=== PATIENT | female | born 1965 | race Caucasian/White ===

== ENCOUNTER → 2016-11-05 07:37 | Outpatient (CLI) | payer MEDICAID ==
[~2016-11-05 07:37] MED LIST: IBUPROFEN600 MG PO; PERCOCET 5-3251 TAB PO; PROVENTIL HFA6.7 GM INH
[2016-11-27 09:20] VITALS: BMI 32.1
== END | disposition home or self-care (01) ==
LOC: D.RT 07:37
DX: J44.9 Chronic obstructive pulmonary disease, unspecified (principal)

== ENCOUNTER 2016-11-26 06:54 | Inpatient (IN) | payer MEDICAID ==
[2016-11-23 11:55] LABS: BASOPHILS 0.6 % (0.0-2.0); EOSINOPHILS 2.7 % (0-7); HEMOGLOBIN 14.8 g/dL (12-16); IMMATURE GRANULOCYTES 0.2 % (0-5); LYMPHOCYTES 25.7 % (15-50); MCH 30.6 pg (26.0-34.0); MCHC 33.6 g/dL (31.0-37.0); MCV 90.9 fL (80.0-100.0); MEAN PLATELET VOLUME 9.5 fL (7.4-10.4); MONOCYTES 4.2 % (2-11); NEUTROPHILS 66.6 % (40-80); PLATELET COUNT 273 10x3/uL (130-400); RBC 4.84 10x6/uL (4.00-5.40); RDW 12.8 % (11.5-14.5); WBC 8.7 10x3/uL (4.8-10.8)
[2016-11-23 12:21] LABS: CALC OSMOLALITY 283 mosm/kg (275-300); CALCIUM 8.6 mg/dL (8.5-10.1); CARBON DIOXIDE 30.3 mmol/L (21.0-32.0); CHLORIDE - SERUM 105 mmol/L (98-107); CREATININE - SERUM 0.8 mg/dL (0.6-1.3); GLUCOSE 116 mg/dL (74-106); POTASSIUM - SERUM 4.6 mmol/L (3.5-5.1); SODIUM 142 mmol/L (136-145); UREA NITROGEN 13 mg/dL (7-18); eGFR NON AFRICAN AMERICAN 80 mL/min (90-120)
[2016-11-26] VITALS (13 sets, daily range): BP systolic 99–129; BP diastolic 56–79; BMI 32.2
[~2016-11-26] VITALS: Ht 167.6 cm; Wt 90.3 kg
[2016-11-26 06:33] LABS: HCG URINE NEGATIVE (NEGATIVE)
[~2016-11-26 06:54] MED LIST changes: -IBUPROFEN600 MG PO; -PERCOCET 5-3251 TAB PO
--- NOTE | 2016-11-26 10:36 | NUR ---
CARE TRANSFERED TO LUCIO ORTIZ.
--- NOTE | 2016-11-26 10:57 | NUR ---
GILBERT DURBINRAAPOLONIA ADMIN PER DR ROSS ORDER UNABLE TO DOCUMENT ON EMAR
--- NOTE | 2016-11-26 11:30 | NUR ---
PT WAS RECEIVED FROM RECOVERY ROOM VIA STRETCHER. SHE WAS TRANSFERRED TO HER BED. PT IS AWAKE AND ALERT. VSS. GEN- AWAKE AND ALERT, LUNGS- WHEEZING BILATERALLY. HEART- RRR. ABD- SOFT WITH TENDERNESS. BIKINI LINE INCISION WITH BULKY DRESSING INTACT. CLEAN AND DRY. LOWER EXTREMITIES WITH SCD'S NOTED. SCD'S INITIATED. INSTRUCTED PT ON ARTERIAL EMBALMER PUMP, PELAEZ WITH METHYLENE BLUE, SCD'S, IV , ARTERIAL EMBALMER, INCENTIVE ESTELLA AND TURNING, COUGHING AND DEEP BREATHING. HER IV IS PATENT R HAND. PELAEZ INTACT WITH 100 CC GREEN URINE. BED IS LOW, SIDE RAILS ARE UP[ AND CALL LIGHT IS IN REACH.
--- NOTE | 2016-11-26 12:24 | NUR ---
HER BOYFRIEND NORMA CARDONA IS AT BEDSIDE. PT OFFERS NO COMPLAINTS. STATES HER PAIN IS IN CONTROL ABOUT A 3. SHE HAD A DOUBLE TAP BLOCK PER RECOVERY ROOM. PT TOLERATED CLEAR LIQUID DIET.
--- NOTE | 2016-11-26 12:41 | NUR ---
PT IS SITTING UP IN BED FINISHING HER CLEAR LIQUID DIET. TOLERATED WELL. HER BOYFRIEND IS AT BEDSIDE. BED IS LOW, SIDE RAILS UP X 2 AND CALL LIGHT IN REACH.
--- NOTE | 2016-11-26 13:03 | NUR ---
DR GOLDSTEIN TO NURSING STATION. SHE WAS INQUIRING ABOUT MRS. CABALLERO'S OUTPUT. I TOLD HER IT WAS ABOUT 100CC. SHE STATED TO GIVE HER A BOLUS OF FLUIDS. SHE ASKED WHAT IV FLUIDS SHE WAS RECEIVING AND I TOLD HER LR AND SHE STATED TO GIVE HER A 500CC BOLUS OF LR. FLUIDS INCREADED AT THIS TIME.
--- NOTE | 2016-11-26 13:18 | NUR ---
PT IS RESTING IN BED. DRESSING CLEAN AND DRY. NO VAGINAL BLEEDING NOTED. PELAEZ INTACT. IV R HAND PATENT. BOLUS OF LR INFUSING. SCD'S INTACT BILATERALLY. BED IS LOW. SIDE RAILS UP X 2 AND CALL LIGHT IN REACH.
[2016-11-26 14:32] LABS: BASOPHILS 0.1 % (0.0-2.0); EOSINOPHILS 0.1 % (0-7); HEMATOCRIT 43.8 % (36.0-48.0); HEMOGLOBIN 14.8 g/dL (12-16); IMMATURE GRANULOCYTES 0.3 % (0-5); LYMPHOCYTES 4.7 % (15-50); MCH 31.2 pg (26.0-34.0); MCHC 33.8 g/dL (31.0-37.0); MCV 92.2 fL (80.0-100.0); MEAN PLATELET VOLUME 9.8 fL (7.4-10.4); MONOCYTES 1.5 % (2-11); NEUTROPHILS 93.3 % (40-80); PLATELET COUNT 268 10x3/uL (130-400); RBC 4.75 10x6/uL (4.00-5.40); WBC 17.2 10x3/uL (4.8-10.8)
[2016-11-26 14:50] LABS: ANION GAP 14.8 mmol/L (8-16); CALCIUM 8.5 mg/dL (8.5-10.1); CARBON DIOXIDE 26.2 mmol/L (21.0-32.0); CREATININE - SERUM 0.9 mg/dL (0.6-1.3)
--- NOTE | 2016-11-26 14:52 | NUR ---
PT IS LYING IN BED SLEEPING. BED IS LOW, SIDE RAILS UPX 2 AND CALL LIGHT IN REACH.
--- NOTE | 2016-11-26 16:10 | NUR ---
DR MICHAEL IS HERE TO SEE PT. NEW ORDERS NOTED.
--- NOTE | 2016-11-26 16:30 | NUR ---
PT STATES HER PAIN IS ABOUT A 2-3. SHE STATES REGI SHE WOULD LIKE HER NICODERM PATCH. NICODERM 21 MG PLACED POSTERIOR LEFT ARM. PT STILL HAS NO VAGINAL BLEEDING. DRESSING INTACT. CLEAN AND DRY. IV PATENT R HAND. PELAEZ INTACT 250 CC LIGHT GREEN URINE.
--- NOTE | 2016-11-26 17:21 | NUR ---
RESPIRATORY IS HERE TO GIVE PT AN UPDRAFT.
--- NOTE | 2016-11-26 17:33 | NUR ---
URINE CULTURE AND RESPIRATORY CULTURES OBTAINED AND SENT TO THE LAB.
--- NOTE | 2016-11-26 18:17 | NUR ---
PT IS EATING DINNER. PELAEZ INTACT WITH 250 CC MORE OF LIGHT GREEN URINE. IV PATENT R HAND WITH LR INFUSING AT 125 CC/HR. DEMEROL TIRE WRAPPER 10 MG Q 10 MIN. BED IS LOW, SIDE RAILS UP X 2 AND CALL LIGHT IS IN REACH.
[2016-11-26 18:35] LABS: APPEARANCE CLEAR (CLEAR); BILIRUBIN NEGATIVE (NEGATIVE); COLOR GREEN (YELLOW); GLUCOSE NEGATIVE (NEGATIVE); KETONE NEGATIVE (NEGATIVE); LEUKOCYTE ESTERASE NEGATIVE (NEGATIVE); NITRITE NEGATIVE (NEGATIVE); PROTEIN NEGATIVE (NEGATIVE); UROBILINOGEN NORMAL (NORMAL)
[2016-11-26 18:36] LABS: BACTERIA FEW /hpf (NONE SEEN); RED CELLS - URINE 0-5 /hpf (0-5); WHITE CELLS - URINE OCC /hpf (0-5)
--- NOTE | 2016-11-26 19:15 | NUR ---
ASSESSMENT PER FLOW SHEET, VS OBTAINED, IF IN RIGHT HAND INTACT WITH NO REDNESS OR EDEMA INFUSING VIA PUMP LR AT 125 ML/HR, DEMEROL TICKET AGENT TO DELIVER 10MG/10MINS PER PT'S DEMAND FOR PAIN CONTROL, PT RATES INC PAIN 12/07, STATES "IT'S NOT THAT BAD", PT INST ON AND VERBALIZES UNDERSTANDING OF TICKET AGENT, Drink Up [employer] WITH LARGE DRESSING CDI WITH NO DRAINAGE NOTED, FRESH ICE PACK TO ABD, NO VAG BLEEDING NOTED, PELAEZ CATH INTACT, DRAINING BLUISH GREEN URINE, PELAEZ CATH SECURED TO LEG WITH MEPIPORE TAPE, PT INST ON DRINKING PLENTY OF FLUIDS, PT DENIES FLATUS, SCD PUMP NOTED TO BE OFF AT THIS TIME, SCD'S ON AND PUMP TURNED ON, SCD PUMP WORKING PROPERLY, PT INST ON AND DEMONSTRATED INCENTIVE SPIROMETER, OVERHEAD LIGHT OFF, SINK LIGHT ON, PT DENIES FURTHER NEEDS
--- NOTE | 2016-11-26 20:30 | NUR ---
PT RESTING ON LEFT SIDE WITH EYES CLOSED, RESP QUIET, NO DISTRESS NOTED, LEFT UNDISTURBED AT THIS TIME
--- NOTE | 2016-11-26 21:04 | NUR ---
PT RESTING WITH EYES CLOSED, AROUSES TO SOFT VERBAL STIMULATION, ADM 2100 MEDS PO PER MD ORDERS, SEE EMAR, PT DENIES NEEDS AT THIS TIME
--- NOTE | 2016-11-26 22:25 | NUR ---
PT IS RESTING ON BACK WITH EYES CLOSED, RESP QUIET, NO DISTRESS NOTED, LEFT UNDISTURBED AT THIS TIME
--- NOTE | 2016-11-26 23:40 | NUR ---
PT AWAKE, DEMEROL YIELD LOSS INSPECTOR FINISHED INFUSING, YIELD LOSS INSPECTOR TURNED OFF, POC DISCUSSED WITH PT ABOUT SALINE LOCKING IV AND REMOVING PELAEZ CATHETER, PT STATES "OH GOOD, I AM READY FOR THAT TO COME OUT", IV IN RIGHT HAND CONVERTED TO SALINE LOCK, FLUSHED WITH 10 MLS OF NS WITH NO DIFFICULTY, PELAEZ CATH REMOVED, 950 MLS OF LIGHT GREEN URINE EMPTIED FROM CATHETER, SILVERIO CARE DONE WITH WET WARM WASH CLOTHS, SCANT VAG DRIED BLOOD NOTED ON PERINIUM, PT INST ON VAG BLEEDING AND VOIDING WITHIN 4-5 HOURS AND USING CALL LIGHT WHEN NEEDING TO GET UP, PT VERBALIZES UNDERSTANDING, VS OBTAINED, PT RATES INC PAIN 01/07, WILL ADM PAIN MED
--- NOTE | 2016-11-26 23:57 | NUR ---
ADM PERCOCET PO PER MD ORDERS WITH FRESH H20, REQUESTED AND SERVED [place] [employer] AND STRAWBERRY JELLO, PT REPORTS TAKING PERCOCET BEFORE WITH NO SIDE EFFECTS, PT'S CELL PHONE HANDED TO HER, PT DENIES FURTHER NEEDS AT THIS TIME
--- NOTE | 2016-11-27 00:35 | NUR ---
PT UP TO BR WITH ASSISTANCE, GAIT STEADY, UNABLE TO VOID AT THIS TIME, REPORTS PASSING FLATUS, ASSISTED PT WITH SILVERIO PAD, PANTIES AND CLEAN GLOWN, PT BACK TO BED, SCD'S RECONNECTED TO PUMP AND WORKING PROPERLY, FRESH ICE PACK TO ABD, CRACKERS PROVIDED, SINK LIGHT OFF, OVERHEAD LIGHT STRING TIED TO BED, PT DENIES FURTHER NEEDS
--- NOTE | 2016-11-27 02:05 | NUR ---
PT FOOD AND BEVERAGE CASHIER LIGHT, SCD'S DISCONNECTED, PT UP TO BR WITH ASSISTANCE, GAIT STEADY, PT VOIDED MOD AMOUNT, MISSED THE [place] HAT, PT BACK TO BED, SCD'S RECONNECTED AND WORKING PROPERLY, PT DENIES FURTHER NEEDS
[2016-11-27 03:36] VITALS: BP 118/76
--- NOTE | 2016-11-27 03:40 | NUR ---
PT CALLED VIA CL FOR ASSISTANCE OOB TO BATHROOM. PT UP TO VOID WITH STANDBY ASSIST. VOIDED 300 MLS CLEAR LIGHT YELLOW URINE IN HAT. PAIN 2/10, "A LITTLE ACHE IN MY BELLY." VSS. ICE WATER GIVEN, DENIES ADDITIONAL NEEDS. BED IN LOW POSITION WITH UPPER SIDE RAILS RAISED X2, CL/PHONE WITHIN PT REACH. WILL CONT TO MONITOR AND ASSIST PRN.
--- NOTE | 2016-11-27 04:40 | NUR ---
PT RESTING WITH EYES CLOSED, RESP QUIET, NO DISTRESS NOTED, LEFT UNDISTURBED AT THIS TIME
--- NOTE | 2016-11-27 05:54 | NUR ---
LAB TO ROOM FOR AM BLOOD DRAW
--- NOTE | 2016-11-27 06:11 | NUR ---
RADIOLOGY TO ROOM FOR CHEST X-RAY
--- NOTE | 2016-11-27 06:17 | NUR ---
PHARMACY NOTIFIED FOR PROTONIX
--- NOTE | 2016-11-27 06:31 | NUR ---
PT AWAKE, C/O INC PAIN AND CRAMPING, ADM PERCOCET AND MOTRIN PO PER MD ORDERS, SEE EMAR, PT REPORTS VOIDING X 2, EMPTIED 650 MLS OF VERY LIGHT GREEN URINE FROM [place] HAT, PT DENIES FURTHER NEEDS
[2016-11-27 06:45] LABS: BASOPHILS 0.1 % (0.0-2.0); EOSINOPHILS 0 % (0-7); HEMOGLOBIN 13.3 g/dL (12-16); IMMATURE GRANULOCYTES 0.3 % (0-5); LYMPHOCYTES 6.1 % (15-50); MCH 30.5 pg (26.0-34.0); MCHC 33.3 g/dL (31.0-37.0); MCV 91.7 fL (80.0-100.0); MEAN PLATELET VOLUME 9.8 fL (7.4-10.4); MONOCYTES 4.9 % (2-11); NEUTROPHILS 88.6 % (40-80); PLATELET COUNT 308 10x3/uL (130-400); RBC 4.36 10x6/uL (4.00-5.40); RDW 12.8 % (11.5-14.5); WBC 16.3 10x3/uL (4.8-10.8)
--- NOTE | 2016-11-27 07:00 | NUR ---
SHIFT REPORT TO DAVID HEATH RN
[2016-11-27 07:02] LABS: CALC OSMOLALITY 277 mosm/kg (275-300); CALCIUM 8.4 mg/dL (8.5-10.1); CARBON DIOXIDE 28.1 mmol/L (21.0-32.0); CHLORIDE - SERUM 103 mmol/L (98-107); CREATININE - SERUM 0.8 mg/dL (0.6-1.3); MAGNESIUM - SERUM 1.9 mg/dL (1.8-2.4); PHOSPHOROUS 3.5 mg/dL (2.5-4.9); POTASSIUM - SERUM 3.8 mmol/L (3.5-5.1); SODIUM 140 mmol/L (136-145); UREA NITROGEN 8 mg/dL (7-18); eGFR NON AFRICAN AMERICAN 80 mL/min (90-120)
[2016-11-27 07:06] LABS: GLUCOSE 110 mg/dL (74-106)
--- NOTE | 2016-11-27 07:20 | NUR ---
PATIENT SITTING UP IN BED. SHE'S JUST RETURNED FROM THE RESTROOM INDEPENDENTLY. SHE STATES THAT SHE IS PASSING GAS. SHE HAS VOIDED X3. SHE STATES THAT HER PAIN IS MEAR SORENESS IN THE ABDOMEN. SHE REQUESTS SOMETHING FOR ACID REFLUX. HER IV SL IS WITHOUT REDNESS, SORENEES.
[2016-11-27 07:30] VITALS: BP 122/67
--- NOTE | 2016-11-27 08:00 | NUR ---
MARIAJOSE HAS JUST COMPLETED HER UPDRAFT TREATMENT FOR RT. BREAKFAST DELIVERED. SHE IS ANXIOUS TO EAT. BOWEL SOUNDS ARE ACTIVE. SHE DENIES PAIN AT THIS TIME. ABDOMINAL DRESSING IS C/D/I.
[2016-11-27 09:20] VITALS: Ht 167.6 cm; Wt 90.3 kg
--- NOTE | 2016-11-27 09:30 | NUR ---
PATIENT REMAINS AWAKE AND ALERT. SECURED HER IV WITH TAPE, PROVIDED WITH FRESH WATER AND ICE PACK TO INCISION. MEDICATIONS GIVEN, EXPLAINED THE TIME LAPSE REQUIREMENT FOR PERCOCET. SHE IS RATING HER PAIN A 4 AND UNDERSTANDS THAT SHE MUST WAIT FOR ADDITIONAL DOSE. SHE VOICES UNDERSTANDING. SHE JUST WANTED ONE SINCE SHE HAS EATEN AND WANTS TO SHOWER SOON. PLACED HER ESTRODIAL PATCH ON HER RIGHT FLANK AREA. DATED IT AND INSTRUCTED HER TO ROTATE PLACEMENT WITH CHANGES. ALSO INSTRUCTED HER TO REPORT ANY SKIN IRRITATION. NICOTINE PATCH PLACED ON HER RIGHT UPPER ARM WITH INSTRUCTRIONS TO KEEP IT FROM A JOINT AND ROTATE PATCH PLACEMENT. SHE VOICES UNDERSTANDING AND REPORTS SHE WILL NAP UNTIL SHE CAN BE PREMEDICATED AGAINST PAIN FOR SHOWER. CALL LIGHT WITHIN HER REACH.
--- NOTE | 2016-11-27 11:00 | NUR ---
PATIENT GIVEN MEDICATION. SHE STATES THAT SHE GOT UP TO THE RESTROOM AND DECIDED TO WALK TO THE NURSERY, GET SOME COFFEE AND RETURN TO BED. SHE IS CURRENTLY RATING PAIN A 5. DENIED OTHER NEEDS AT THIS TIME. CALL LIGHT IS WITHIN HER REACH.
--- NOTE | 2016-11-27 12:37 | NUR ---
PATIENT SITTING UP IN HER BED, HOB UP 45 DEGREES. SHE STATES THAT HER PAIN IS RATED A 2 ON THE PAIN SCALE. [facility]. PT DENIES PAIN. MONITORING.
--- NOTE | 2016-11-27 13:59 | NUR ---
PATIENT OUT AMBULATING IN THE HALLWAY WITH HER DAUGHTER IN LAW. STATE SHTAT SHE IS GOING TO WALK HER DAUGHTER IN LAW TOWARD THE FRONT DOOR. SHE IS WALKING UPRIGHT WITHOUT GUARDING HERSELF. STATES THAT SHE IS CURRENTLY "FEELING REAL GOOD".
--- NOTE | 2016-11-27 14:25 | NUR ---
PATIENT RETURNED TO UNIT ALONE. I EXPLAINED THAT I WAS CONCERNED FOR HER SAFETY SINCE SHE WAS OFF THE UNIT FOR SO LONG. INSTRUCTED HER TO REMAIN ON THE UNIT WHEN AMBULATING. SHE VOICED UNDERSTANDING.
[2016-11-27 16:20] VITALS: BP 122/75
--- NOTE | 2016-11-27 16:40 | NUR ---
MARIAJOSE IS RESTING IN HER BED WITH LIGHTS OUT AND TV ON LOW. SHE DENIES NEEDS, REQUESTS THE IV SL BE REMOVED FROM HER RIGHT HAND. DID SO WITH THE CATHETER FULLY INTACT. 1+ PITTING NOTED TO THE TOPS OF BOTH FEET. SCD ARE ON AND WORKING.
--- NOTE | 2016-11-27 17:30 | NUR ---
PATIENT UP AMBULATING IN THE HALLWAY. SHE DENIES NEEDS AT THIS TIME.
--- NOTE | 2016-11-27 18:38 | NUR ---
PATIENT UP VISITING WITH MALE VISITOR. DENIES NEEDS A TTHIS TIME.
[2016-11-27 19:25] VITALS: BP 129/75
--- NOTE | 2016-11-27 19:25 | NUR ---
PT RECEIVED SITTING UP IN BED AWAKE AND ALERT WITH FAMILY MEMBER AT BEDSIDE. PT RATES PAIN 5/10. VSS. HEART RRR. LUNG SOUNDS CLEAR BILATERALLY. BOWEL SOUNDS ACTIVE X4 QUADRENTS. LOW TRANSVERSE INCISION NOTED TO ABDOMEN COVERED WITH BULKY DRESSING. CDI. NO BLEEDING NOTED TO PAD UNDER PT. ABDOMEN SOFT WITH TENDERNESS NOTED. SCDS NOTED TO BLE. PT DENIES NEEDS AT THIS TIME. STATES SHE WILL PRESS CALL LIGHT WHEN SHE IS READY TO GET IN THE SHOWER. BED LOW. PHONE AND CALL LIGHT IN REACH. SRX2.
--- NOTE | 2016-11-27 19:25 | NUR ---
CALLED TO PT BS WITH C/O PAIN. RATES 04/08. REQUESTS MEDICATION. 1 TAB PERCOCET 10 AND 1 TAB IBUPROFEN PROVIDED AT THIS TIME. LINENS PROVIDED TO PT TO TAKE A SHOWER WHEN READY. PT DENIES ANY FURTHER NEEDS. BED IN LOW POSITION, SIDE RAILS UP TIMES 2, CALL LIGHT AND PHONE IN REACH. SO AT PT BS FOR SUPPORT AND ASSISTANCE. WILL CONT TO MONITOR PT STATUS.
--- NOTE | 2016-11-27 20:45 | NUR ---
PT UP USING SHOWER AT THIS TIME. REMOVED DRESSING FROM INCISION. SCANT BLOOD NOTED TO DRESSING. INCISION EDGES WELL APPROXIMATED. NO REDNESS, PURULENT DRAINAGE, OR SWELLING NOTED TO INCISIONAL AREA. LINEN CHANGE DONE. PT REQUESTS ICE WATER AT THIS TIME. RATES PAIN 4/10. DENIES OTHER NEEDS. BED LOW. PHONE AND CALL LIGHT IN REACH. SRX2.
--- NOTE | 2016-11-27 21:21 | NUR ---
ADMINISTERED PM MEDS. PT RATES PAIN 01/07. DENIES NEEDS AT THIS TIME. BED LOW. PHONE AND CALL LIGHT IN REACH. SRX2.
--- NOTE | 2016-11-27 22:39 | NUR ---
PT RESTING QUIETLY AT THIS TIME WITH EYES CLOSED. RESPIRATIONS EVEN, NON-LABORED. NO ACUTE DISTRESS NOTED AT THIS TIME. BED LOW. PHONE AND CALL LIGHT IN REACH. SRX2.
[2016-11-28] VITALS: BP 115/67
--- NOTE | 2016-11-28 | NUR ---
PT RESTING QUIETLY AT THIS TIME. AROUSED EASILY. VSS. PT DENIES NEEDS. BED LOW. PHONE AND CALL LIGHT IN REACH. SRX2.
--- NOTE | 2016-11-28 02:00 | NUR ---
PT RESTING QUIETLY AT THIS TIME WITH EYES CLOSED. RESPIRATIONS EVEN, NON-LABORED. NO ACUTE DISTRESS NOTED AT THIS TIME. BED LOW. PHONE AND CALL LIGHT IN REACH. SRX2
--- NOTE | 2016-11-28 02:10 | NUR ---
PT HISTORIOGRAPHY TEACHER LIGHT. REQUESTS MEDICATION FOR PAIN 03/09. ADMINSITERED PERCOCET PO PER ORDERS. PT DENIES OTHER NEEDS. BED LOW. PHONE AND CALL LIGHT IN REACH. SRX2.
[2016-11-28 03:48] VITALS: BP 112/75
--- NOTE | 2016-11-28 03:48 | NUR ---
PT RESTING QUIETLY AT THIS TIME WITH EYES CLOSED. AROUSED EASILY. VSS. PT DENIES NEEDS AT THIS TIME. BED LOW. PHONE AND CALL LIGHT IN REACH. SRX2.
--- NOTE | 2016-11-28 05:28 | NUR ---
PT RESTING QUIETLY IN BED AT THIS TIME. RESPIRATIONS EVEN, NON-LABORED. NO ACUTE DISTRESS NOTED AT THIS TIME. BED LOW. PHONE AND CALL LIGHT IN REACH. SRX2.
--- NOTE | 2016-11-28 05:54 | NUR ---
PT LYING IN BED RESTING QUIETLY AT THIS TIME WITH EYES CLOSED. AROUSED EASILY. ADMINISTERED PROTONIX PO PER ORDERS. PT DENIES NEEDS AT THIS TIME.
[2016-11-28 07:30] VITALS: BP 140/84
--- NOTE | 2016-11-28 07:30 | NUR ---
PT WAS RECEIVED LYING IN BED. SHE STATES HER PAIN IS A 5 AND WOULD LIKE PAIN MED. PERCOCET 10/325 GIVEN PO. VSS. GEN- AWAKE AND ALERT. LUNGS- WITH WHEEZING. HEART- RRR. ABDOMEN SOFT WITH TENDERNESS. BIKINI LINE INCISION WITH DERMABOND. INCISION CLEAN ,DRY AND INTACT. EXT- WITH SCD'S INTACT. FEET WARM AND DRY. BED IS LOW, SIDE RAILS UP X 2 AND CALL LIGHT IN REACH.
[2016-11-28 07:35] LABS: BASOPHILS 0.2 % (0.0-2.0); EOSINOPHILS 0.7 % (0-7); HEMATOCRIT 36.5 % (36.0-48.0); HEMOGLOBIN 12.1 g/dL (12-16); IMMATURE GRANULOCYTES 0.2 % (0-5); LYMPHOCYTES 24.8 % (15-50); MCH 30.5 pg (26.0-34.0); MCHC 33.2 g/dL (31.0-37.0); MCV 91.9 fL (80.0-100.0); MEAN PLATELET VOLUME 9.9 fL (7.4-10.4); MONOCYTES 7.1 % (2-11); PLATELET COUNT 259 10x3/uL (130-400); RBC 3.97 10x6/uL (4.00-5.40); RDW 13.1 % (11.5-14.5)
[2016-11-28 07:36] LABS: WBC 8.5 10x3/uL (4.8-10.8)
[2016-11-28] MEDS ORDERED: PERCOCET 5-3251 TAB PO (08:11)
[2016-11-28] MEDS ORDERED: IBUPROFEN600 MG PO (08:11)
--- NOTE | 2016-11-28 08:16 | NUR ---
RESPIRATORY THERAPY HER TO GIVE PT BREATHING TREATMENT. PT TOLERATED WELL.
--- NOTE | 2016-11-28 08:20 | OP ---
PATIENT NAME: DANIEL CABALLERO MEDICAL RECORD: [id number] :65 LOCATION:[id number] ADMISSION DATE:11/26/16 SURGEON: JEANETTE MOTA MD DATE OF OPERATION: 11/26/2016 PREOPERATIVE DIAGNOSES: 1. Uterine leiomyomas. 2. Postmenopausal bleeding. POSTOPERATIVE DIAGNOSES: 1. Uterine leiomyomas. 2. Postmenopausal bleeding. SURGEON: Jeanette Mota MD ANESTHESIA: General endotracheal anesthesia with Michael Fleming CRNA. PROCEDURES: 1. Total abdominal hysterectomy/bilateral salpingo-oophorectomy. 2. Myomectomy. FINDINGS: Enlarged fibroid uterus with a 7-8 cm fibroid noted of the left broad ligament extending from the region of the uterine fundus almost entirely to the left pelvic sidewall and from the pelvic rim to the cul-de-sac. Once the right ovarian/uterine and left ovarian blood supplies were taken, the broad ligament was opened and myomectomy was performed to restore more normal anatomy to ensure safety during the procedure. The myoma was passed off the field as specimen in addition to the uterus/cervix/adnexa. Methylene blue was given intraoperatively with no extravasation of blue dye noted within the abdominal cavity at any time and clear blue-green urine output noted at completion of the procedure. PROCEDURE IN DETAIL: After informed consent was given, the patient was taken to the operating room where general endotracheal anesthesia was placed and found to be adequate. She was placed in a dorsal frogleg position. A Garrison catheter was placed sterilely. A vaginal prep was performed. The patient was then placed into a supine position and an abdominal prep was performed. She was draped sterilely. A Pfannenstiel skin incision was then made with the scalpel and carried down to the underlying layer of fascia. The fascia was incised in the midline and the fascial incision extended bilaterally with the Hammonds scissors. The superior portion of the fascial incision was grasped with 2 Malaika clamps and the rectus muscles dissected off sharply and bluntly. Attention was then turned to the inferior portion of the fascial incision, which was again grasped with 2 Malaika clamps and the rectus muscles dissected off sharply and bluntly. Rectus muscles were in the midline, the peritoneum identified and grasped with 2 hemostats. The Metzenbaum scissors were then used to enter the peritoneal cavity sharply. The peritoneal incision was then extended superiorly and inferiorly with good visualization of the bladder. The abdomen was then palpated with findings as listed above. The O'Tulio-O'Lazaro retractor was then gently placed into the abdominal cavity and opened. The bowel was then packed with 4 moist lap sponges. A blue moistened towel was placed over the anterior abdominal wall skin and down into the posterior cul-de-sac to shield from the abdominal bowel blade, which was then added onto the O'Tulio-O'Lazaro retractor and bladder blade was placed. The uterus was then grasped in the cornual regions bilaterally with 2 Trupti clamps and elevated. The uterus and adnexa were again palpated and evaluated. The right round OPERATIVE REPORT [id number] ADADANIEL ADAM ligament was grasped with Malaika clamp, transected with the Bovie cautery and suture ligated with 0 Vicryl stick tie. This was held on hemostat. The anterior leaf of the broad ligament was then opened and a bladder flap was begun starting laterally and heading medially. The infundibulopelvic ligament was isolated, clamped with 3 Angelica clamps, transected between the first 2 and suture ligated first with a free tie on a passer and then with 0 Vicryl stick tie. Excellent hemostasis was noted. The uterine vessels on the right were then skeletonized, clamped with Angelica clamps, transected with Hammonds scissors, and suture ligated with 0 Vicryl stick ties. Excellent hemostasis was noted. Attention was then turned to the opposite side. The left round ligament was then clamped with Malaika clamp, transected with the Bovie cautery and suture ligated with 0 Vicryl stick tie. The anterior leaf of the broad ligament on this side was opened in a similar fashion and met on the opposite side effectively dissecting the back of the bladder. The infundibulopelvic ligament was then able to be isolated. It was clamped with 3 curved Angelica clamps, transected between the first 2 and suture ligated with a free tie on a passer and 0 Vicryl stick tie. Excellent hemostasis was again noted. The uterine vessels could not be discerned at this point due to this large fibroid tumor. We were then able to more readily isolate the fibroid. The fibroid was injected in multiple locations with diluted Pitressin solution to aid in hemostasis. As the scleral region was noted anteriorly where the bladder had been dissected away, the Bovie cautery was used to create an incision in this anterior region of the fibroid. We then clamped the fibroid with a tenaculum and held the fibroid on tension as we used the Hammonds scissors, sterile spoon and digital manipulation to shell out the large myoma. Once this was accomplished as safely as could be, the myoma was excised and passed off the field as specimen. We then reapproximated the lower uterine segment of the uterus to the upper fundal region to restore more normal appearing anatomy. The ureter was then able to be identified on this left side and it was palpably normal and noted to be peristalsing normally. The uterine vessels on the left side then were isolated, skeletonized, clamped with 2 curved Angelica clamps, transected and suture ligated with 0 Vicryl stick ties. We then continued clamping, transecting and suture ligating the parametrial and paracervical tissues utilizing a straight Angelica clamp on either side, transecting with the knife and suture ligating with 0 Vicryl until reaching the distal cervix. The proximal vagina was then clamped with 2 curved Angelica clamps and Trevon scissors were used to excise the uterus and cervix and this was passed off the field as specimen. The vaginal cuff was then closed in an interrupted [id number] fashion with 1-0 Vicryl suture. Excellent hemostasis was noted. The ureters were identified once again on either side and noted to be peristalsing normally. The abdomen was irrigated profusely and noted to be hemostatic. Romel dust was placed over the cuff region to aid additionally in hemostasis. The sutures were trimmed. The O'Tulio-O'Lazaro retractor was removed, as well as the bowel and bladder blades. The bowel packing was removed and a count was performed and reported to be correct. The rectus muscles were reapproximated in the midline with 4 interrupted chromic sutures. The fascia was closed with 1-0 Vicryl in a running fashion, locking the first suture. The subcutaneous tissue was irrigated, any bleeders cauterized with Bovie when noted to be sufficiently dry, was closed with 3-0 Vicryl in a running fashion and the skin was closed with 3-0 Monocryl in a subcuticular fashion. Dermabond and pressure dressing were applied. Clear blue-green urine was noted at completion of the procedure. The patient tolerated procedure well. Sponge, lap, needle and instrument counts were reported correct times 2. ESTIMATED BLOOD LOSS: 150 cc. OPERATIVE REPORT [id number] DANIEL CABALLERO URINE OUTPUT: 200 cc. IV FLUIDS: 1800 cc. COMPLICATIONS: None. SPECIMENS: 1. Uterine myoma. 2. Uterus, cervix, bilateral fallopian tubes and ovaries. The patient went to the recovery room in stable condition, the infant to the nursery. TRANSINT:[id number] Voice Confirmation ID: [id number] DOCUMENT ID: [id number] JEANETTE MOTA MD at 0820 CC: [id number] DICTATION DATE: 11/26/16 1226 STOCKFEED MILLER: 11/26/16 1615 ADM IN [place] [id number] [place] [id number]
--- NOTE | 2016-11-28 08:30 | NUR ---
DR GOLDSTEIN IS HERE TO SEE PT THIS AM. SHE WILL DISCHARGE PT HOME TODAY. NEW ORDERS REVIEWED.
--- NOTE | 2016-11-28 09:31 | NUR ---
DR MICHAEL, SPECIAL NEEDS LIBRARIAN HERE TO SEE PT. STATES THAT SHE MAY BE DISCHARGED HOME TODAY. VERBAL ORDERS FOR DISCHARGE. DUONEB QID. MUCINEX DM BID. FLONASE 2 SPRAYS EACH NOSTRIL DAILY. OMEPRAZOLE 20 MG DAILY. OMNICEF 300 MG BID X 7 DAYS. USE INCENTIVE SPIROMETRY OFTEN AT HOME. FOLLOW UP WITH DR CARBAJAL IN 2 WEEKS AT HIS OFFICE.
--- NOTE | 2016-11-28 10:12 | NUR ---
Environment Home with Family 0 * ADLs Independent 0 * Equipment None 0 * List name and contact numbers for known caregivers / representatives who currently or will assist patient after discharge: BOYFRIEND: NORMA CARDONA [phone] * Community resources currently utilized None 0 * Additional services required to return to the preadmission environment? Yes 0 * Can the patient safely return to the preadmission environment? Yes 0 * Has this patient been hospitalized within the prior 30 days at any hospital? No 0 PATIENT STATES SHE LIVES AT HOME WITH HER BOYFRIEND, NORMA CARDONA. HE WILL BE AVAILABLE TO DRIVE HER HOME AT DISCHARGE. SHE WAS INDEPENDENT PRIOR TO COMING TO THE HOSPITAL. HER PCP IS DR. MALIK. SHE GETS HER MEDS FROM [facility] AT THE [facility]. SHE DENIES EVER HAVING HOME HEALTH. PATIENT DENIES USE OF ANY DME. THERE ARE 1-2 STEPS TO ENTER HER HOME. PATIENT NEEDS A NEBULIZER. I HAVE ARRANGED NEBULIZER FROM [facility]. I SPOKE WITH [employer] AND FAXED THE REQUESTED [employer]. THE PATIENT WILL CALL THEM WHEN SHE GETS HOME TO HAVE THEM DELIVER THE NEBULIZER. THE DISCHARGE NURSE WILL CALL THE ANGELA TO [facility] AT THE [facility] ALONG WITH HER OTHER MEDS. PATIENT STATES NORMA WILL STOKER INSTALLER HER MEDS AFTER HE TAKES HER HOME.
--- NOTE | 2016-11-28 10:30 | NUR ---
PTS DISCHARGE INSTRUCTIONS DISCUSSED WITH PT. GAVE HER HANDOUT OF INSTRUCTIONS, PRESCRIPTIONS AND FU APPT CARD. HER DUONED,MUCINEX, OMEPRAZOLE AND [facility]. PT UNDERSTNADS INSTRUCTIONS. PT WAS TAKEN TO THE FRONT ENTRANCE BY WHEELCHAIR.
== END 2016-11-28 11:00 | disposition home or self-care (01) | DRG 742 ==
LOC: D.SDCHOLD 06:54 → D.WS 10:46
PROVIDERS: Internal Medicine Pulmonary Disease; ADMIT Specialist
PROC: 0UT20ZZ Resection of Bilateral Ovaries, Open Approach (ICD-10-PCS; 2016-11-26)
PROC: 0UT70ZZ Resection of Bilateral Fallopian Tubes, Open Approach (ICD-10-PCS; 2016-11-26)
PROC: 0UB90ZZ Excision of Uterus, Open Approach (ICD-10-PCS; 2016-11-26)
PROC: 0UT90ZZ Resection of Uterus, Open Approach (ICD-10-PCS; principal; 2016-11-26 07:30)
PROC: 0UTC0ZZ Resection of Cervix, Open Approach (ICD-10-PCS; 2016-11-26 07:30)
DX: D25.9 Leiomyoma of uterus, unspecified (principal); J44.1 Chronic obstructive pulmonary disease with (acute) exacerbation; F17.203 Nicotine dependence unspecified, with withdrawal; J98.11 Atelectasis; J90 Pleural effusion, not elsewhere classified; N95.0 Postmenopausal bleeding; K21.9 Gastro-esophageal reflux disease without esophagitis; J30.9 Allergic rhinitis, unspecified

== ENCOUNTER 2019-03-24 09:21 | Day surgery (SDC) | payer MEDICAID ==
[~2019-03-24 09:21] MED LIST changes: +IBUPROFEN600 MG PO; +PERCOCET 5-3251 TAB PO
[2019-03-24 09:38] LABS: HEMATOCRIT 45.7 % (36.0-48.0); HEMOGLOBIN 15.9 g/dL (12-16); MCH 31.5 pg (26.0-34.0); MCHC 34.8 g/dL (31.0-37.0); MCV 90.7 fL (80.0-100.0); MEAN PLATELET VOLUME 8.7 fL (7.4-10.4); RBC 5.04 10x6/uL (4.00-5.40); RDW 12.1 % (11.5-14.5); WBC 8.6 10x3/uL (4.8-10.8)
[2019-03-24] MEDS ORDERED: CYMBALTA30 MG PO (11:40)
[2019-03-24] MEDS ORDERED: HYDROCODON-ACE1 EAC7 PO (11:40)
[2019-03-24] MEDS ORDERED: CATAPRES0.2 MG PO (11:41)
[2019-03-24] MEDS ORDERED: EFFEXOR XR37.5 MG PO (11:41)
[2019-03-24] MEDS ORDERED: ALBUTEROL2.5 MG/3 M INH (11:41)
[2019-03-24 11:42] VITALS: BMI 32.3
--- NOTE | 2019-03-24 15:45 | NUR ---
1542 DR. AUDI SKELTON XRAY NOTIFIED OF ROOM NUMBER.
--- NOTE | 2019-03-24 16:00 | NUR ---
1558 XRAY DONE 1600 NAUSEA WITH EMESIS OF PHLEGM PASSING FLATUS NOTED WITH EMESIS
--- NOTE | 2019-03-24 16:40 | NUR ---
1640 WATER SERVED XRAY NO FREE AIR
--- NOTE | 2019-03-27 17:12 | OP ---
PATIENT NAME: DANIEL CABALLERO MEDICAL RECORD: [id number] :65 LOCATION:D.OPS ADMISSION DATE: SURGEON: RONALDO HUNTLEY MD DATE OF OPERATION: 03/24/2019 PREOPERATIVE DIAGNOSES: 1. History of medication tolerance. 2. History of multiple colon polyps, all of which could not be retrieved during the initial endoscopy due to medication intolerance. POSTOPERATIVE DIAGNOSES: 1. History of medication tolerance. 2. History of multiple colon polyps, all of which could not be retrieved during the initial endoscopy due to medication intolerance, with a total of 51 polyps. PROCEDURES: 1. Total colonoscopy to cecum. 2. Snare polypectomies times 5. 3. Hot biopsy forceps polypectomies times 4. 4. Submucosal epinephrine injection times 2. 5. Placement of metallic clips for hemostasis times 2. 6. Endoscopic ablation of 42 smaller polyps utilizing the argon plasma test borer helper. SURGEON: Ronaldo Huntley MD LAST TRIMMER: None. BLOOD LOSS: Minimal. ANESTHESIA: IV sedation. COMPLICATIONS: None. The risks, possible complications, and alternatives to the procedures were explained to the patient. She elects to proceed. Indeed, the patient was tolerant of medication. The endoscopic course was fairly lengthy due to the number of polyps that were identified. DESCRIPTION OF PROCEDURE: The patient was conveyed to the endoscopy suite electively on 03/24/2019. IV sedation was induced by the anesthesia staff. The patient was placed in the Pfeiffer position. A digital rectal examination was performed. A colonoscope was inserted through the anus. It was easily advanced to the cecum. The prep was poor and not acceptable. I slowly withdrew the endoscope. The pullback was greater than one hour pullback. I dragged the folds. I utilized normal imaging as well as narrow band imaging. The polyps ranged in size from 5 mm to 2.5 cm. One of the polyp had a very long stalk on it. Two of the polyps that had stalks on them were treated with submucosal epinephrine injection within the stalk and then snare polypectomies. Three other polyps were removed utilizing a snare polypectomy technique. Five hot biopsy forceps polypectomies were performed. Endoscopic clips had to be placed at one of the snare polypectomy sites due to bleeding. This caused the bleeding to cease. I used the argon plasma test borer helper to ablate 42 smaller polyps. There was no evidence of further bleeding. The patient was then conveyed back OPERATIVE REPORT [id number] DANIEL CABALLERO to her room. A portable chest x-ray is pending. I am going to see that she gets a dose of meropenem before she leaves. She is going to be dismissed home on Flagyl. I will see her in the office in 2-3 weeks. I will plan for her next endoscopy to take place in one year unless one of these polyps has evidence of invasive malignancy. TRANSINT:[id number] Voice Confirmation ID: [id number] DOCUMENT ID: [id number] RONALDO HUNTLEY MD at 1712 CC: GARETT EL and AMY MALIK MD [id number] DICTATION DATE: 03/24/19 1531 SHOPFITTER: 03/24/191954 [facility] 03/24/19 [id number] [place] [address]
== END 2019-03-24 18:20 | disposition home or self-care (01) ==
LOC: D.OPS 09:21
PROVIDERS: Anesthesiology; ATTEND Surgery
DX: D12.4 Benign neoplasm of descending colon (principal); D12.3 Benign neoplasm of transverse colon; D12.5 Benign neoplasm of sigmoid colon; K63.5 Polyp of colon; T50.905A Adverse effect of unspecified drugs, medicaments and biological substances, initial encounter; Z01.812 Encounter for preprocedural laboratory examination

== ENCOUNTER 2019-07-01 11:00 | Outpatient (CLI) | payer MEDICAID ==
[~2019-07-01 11:00] MED LIST changes: +ALBUTEROL2.5 MG/3 M INH; +CATAPRES0.2 MG PO; +CYMBALTA30 MG PO; +EFFEXOR XR37.5 MG PO; +HYDROCODON-ACE1 EAC7 PO
== END 2019-07-01 11:30 | disposition home or self-care (01) ==
LOC: D.MAMMO 11:00
PROVIDERS: ATTEND Family Medicine
DX: Z12.31 Encounter for screening mammogram for malignant neoplasm of breast (principal)

== ENCOUNTER → 2020-06-13 09:50 | Outpatient (CLI) | payer OTHER | END | disposition home or self-care (01) | LOC: D.RAD 09:50 | PROVIDERS: ATTEND Pediatrics | DX: Z02.71 Encounter for disability determination (principal) ==